=== PATIENT | male | born 1945 | race Caucasian/White ===

== ENCOUNTER 2018-02-20 08:29 | Day surgery (SDC) | payer MEDICARE, BC ==
[~2018-02-20] VITALS: Ht 175.3 cm; Wt 1016.7 kg
[~2018-02-20 08:29] MED LIST: ATOR10 PO; BENAML20/5 PO; FISH1000 PO; LEVSOD200 PO; MULVITMIND PO
[2018-02-20] MEDS ORDERED: Aspir 8181 MG (09:06)
[2018-02-20] MEDS ORDERED: FENOFIBRIC ACID35 MG (09:07)
[2018-02-20] MEDS ORDERED: LOSA50 (09:07)
[2018-02-20] MEDS ORDERED: TAMS.4ER (09:07)
[2018-02-20] MEDS ORDERED: DICL75ER (09:08)
== END 2018-02-20 10:21 | disposition home or self-care (01) ==
LOC: ORSCSDS 08:29
PROVIDERS: Surgery
PROC: 0DBM8ZX Excision of Descending Colon, Via Natural or Artificial Opening Endoscopic, Diagnostic (ICD-10-PCS; principal; 2018-02-20 09:45)
DX: Z12.11 Encounter for screening for malignant neoplasm of colon (principal); D12.4 Benign neoplasm of descending colon; Z86.010 Personal history of colon polyps; G47.30 Sleep apnea, unspecified; I10 Essential (primary) hypertension; J45.909 Unspecified asthma, uncomplicated; N40.0 Benign prostatic hyperplasia without lower urinary tract symptoms; E03.9 Hypothyroidism, unspecified; E78.00 Pure hypercholesterolemia, unspecified; Z79.82 Long term (current) use of aspirin; Z79.899 Other long term (current) drug therapy; Z87.891 Personal history of nicotine dependence
CPT/HCPCS: 88305; J0330; J1980; J2405; J7120

== ENCOUNTER → 2019-07-22 | Outpatient (CLI) | payer MEDICARE, BC ==
[~2019-07-22] MED LIST changes: +Aspir 8181 MG; +DICL75ER; +FENOFIBRIC ACID35 MG; +LOSA50; +TAMS.4ER
[2019-07-22 16:25] LABS: Bilirubin, Urine Neg (Neg); Blood, Urine Neg (Neg); Glucose Qualitative, Urine Neg (Neg); Ketones, Urine Neg (Neg); Leukocyte Esterase, Urine Neg (Neg); Nitrite, Urine Neg (Neg); Protein, Urine Neg (Neg); Specific Gravity, Urine 1.015 (1.003-1.022); Urobilinogen, Urine NORM (Normal)
[2019-07-22 16:32] LABS: Appearance, Urine Clear (Clear); Color, Urine Yellow (P-Yellow)
[2019-07-22 16:58] LABS: Protein, Urine Random 6.9 mg/dL (0.0-11.9)
== END | disposition home or self-care (01) ==
LOC: LAB 13:29 → LAB SHORT 13:29
PROVIDERS: Internal Medicine
DX: I12.9 Hypertensive chronic kidney disease with stage 1 through stage 4 chronic kidney disease, or unspecified chronic kidney disease (principal); N18.3 Chronic kidney disease, stage 3 (moderate)
CPT/HCPCS: 81003; 82570; 84156

== ENCOUNTER 2020-08-09 13:18 | Emergency (ER) | payer MEDICARE, BC ==
[~2020-08-09] VITALS: Ht 175.3 cm; Wt 97.5 kg
[2020-08-09] MEDS ORDERED: OLME20 PO (13:43)
[2020-08-09] MEDS ORDERED: DULO30 PO (13:43)
[2020-08-09] MEDS ORDERED: DUTA.5 PO (13:43)
[2020-08-09] MEDS ORDERED: BENADRYL25 MG PO (13:44)
[2020-08-09] MEDS ORDERED: NIAC500 PO (13:44)
[2020-08-09] MEDS ORDERED: UBID10 PO (13:44)
[2020-08-09] MEDS ORDERED: ALLEGRA ALLERG180 MG PO (13:44)
[2020-08-09] MEDS ORDERED: FISH OIL-VIT D1 EACH PO (13:44)
[2020-08-09 15:41] LABS: BASOPHILS ABSOLUTE AUTO 0.02 K/mm3 (0.00-0.23); BASOPHILS PERCENT AUTO 0 % (0-2); EOSINOPHILS ABSOLUTE AUTO 0.03 K/mm3 (0.00-0.68); EOSINOPHILS PERCENT AUTO 0 % (0-6); Hematocrit 41.7 % (37.0-53.0); Hemoglobin 13.2 g/dL (13.5-17.5); IMMATURE GRAN ABSOLUTE AUTO 0.03 K/mm3 (0.00-0.10); IMMATURE GRAN PERCENT AUTO 0 % (0-1); LYMPHOCYTES ABSOLUTE AUTO 0.92 K/mm3 (0.84-5.20); LYMPHOCYTES PERCENT AUTO 9 % (21-46); MONOCYTES ABSOLUTE AUTO 1.53 K/mm3 (0.16-1.47); MONOCYTES PERCENT AUTO 15 % (4-13); Mean Corpuscular HGB 29.6 pg (26.0-34.0); Mean Corpuscular HGB Conc 31.7 g/dL (31.5-36.5); Mean Corpuscular Volume 94 fL (80-100); Mean Platelet Volume 10.8 fL (9.1-12.4); NEUTROPHILS ABSOLUTE AUTO 7.85 K/mm3 (1.96-9.15); NEUTROPHILS PERCENT AUTO 76 % (41-73); Platelet Count 266 K/mm3 (150-400); RDW Coefficient Variation 12.9 % (11.7-14.2); RDW Standard Deviation 44.2 fL (35.1-46.3); Red Blood Cell Count 4.46 M/mm3 (4.30-5.90); White Blood Cell Count 10.38 K/mm3 (4.00-11.30)
[2020-08-09 15:58] LABS: Alanine Aminotransfer (ALT/SGP 22 U/L (12-78); Albumin, Blood 3.5 g/dL (3.4-5.0); Albumin/Globulin Ratio 0.9 (0.8-1.8); Alk Phos 42 U/L (50-136); Anion Gap 4 mmol/L (6-16); Aspartate Aminotrans (AST/SGOT 13 U/L (12-37); Bilirubin, Total 0.4 mg/dL (0.1-1.0); Blood Urea Nitrogen 20 mg/dL (8-24); Bun/Creatinine Ratio 15.9 (12.0-20.0); CO2, Blood 28 mmol/L (21-32); Calcium, Blood 9.2 mg/dL (8.5-10.1); Chloride, Blood 108 mmol/L (98-108); Creatinine, Blood 1.26 mg/dL (0.60-1.20); Globulin, Blood 3.8 g/dL (2.2-4.0); Glomerular Filtration Rate 59 (60-); Glucose, Blood 120 mg/dL (70-99); Potassium, Blood 4.3 mmol/L (3.5-5.5); Sodium, Blood 140 mmol/L (136-145); Total Protein, Blood 7.3 g/dL (6.4-8.2); Troponin I <0.015 ng/mL (0.000-0.040)
[2020-08-09] MEDS ORDERED: LIDO700A20 TOP (17:56)
[2020-08-09] MEDS ORDERED: ACETAMINOPHEN500 MG PO (17:56)
[2020-08-09] MEDS ORDERED: Valium5 MG PO (17:56)
== END 2020-08-09 18:33 | disposition home or self-care (01) ==
LOC: ER 13:18
PROVIDERS: Emergency Medicine
DX: M62.838 Other muscle spasm (principal); R07.9 Chest pain, unspecified; I10 Essential (primary) hypertension; F17.200 Nicotine dependence, unspecified, uncomplicated; Z79.82 Long term (current) use of aspirin; Z79.899 Other long term (current) drug therapy
CPT/HCPCS: 36415; 71045; 80053; 84484; 85025; 93005; 93010; 99285-25; A9270; A9270-GY

== ENCOUNTER → 2022-09-01 | Outpatient (CLI) | payer MEDICARE, BC ==
[~2022-09-01] MED LIST changes: +ACETAMINOPHEN500 MG PO; +ALLEGRA ALLERG180 MG PO; +BENADRYL25 MG PO; +DULO30 PO; +DUTA.5 PO; +FISH OIL-VIT D1 EACH PO; +LIDO700A20 TOP; +NIAC500 PO; +OLME20 PO; +UBID10 PO; +Valium5 MG PO
[2022-09-01 10:11] LABS: Protein, Urine Quantitative <5.0 mg/dL (0.0-11.9)
== END | disposition home or self-care (01) ==
LOC: LAB SHORT 06:05
PROVIDERS: Family Medicine
DX: N28.9 Disorder of kidney and ureter, unspecified (principal)
CPT/HCPCS: 81050; 84156

== ENCOUNTER 2023-04-13 18:41 | Observation (INO) | payer MEDICARE, BC ==
[~2023-04-13] VITALS: Ht 175.3 cm; Wt 102.0 kg
[2023-04-13 19:59] LABS: BASOPHILS ABSOLUTE AUTO 0.05 K/mm3 (0.00-0.23); BASOPHILS PERCENT AUTO 1 % (0-2); EOSINOPHILS ABSOLUTE AUTO 0.24 K/mm3 (0.00-0.68); EOSINOPHILS PERCENT AUTO 4 % (0-6); Hematocrit 36.3 % (37.0-53.0); Hemoglobin 11.7 g/dL (13.5-17.5); IMMATURE GRAN ABSOLUTE AUTO 0.02 K/mm3 (0.00-0.10); IMMATURE GRAN PERCENT AUTO 0 % (0-1); LYMPHOCYTES ABSOLUTE AUTO 1.03 K/mm3 (0.84-5.20); LYMPHOCYTES PERCENT AUTO 17 % (21-46); MONOCYTES ABSOLUTE AUTO 0.68 K/mm3 (0.16-1.47); MONOCYTES PERCENT AUTO 11 % (4-13); Mean Corpuscular HGB 30.5 pg (26.0-34.0); Mean Corpuscular HGB Conc 32.2 g/dL (31.5-36.5); Mean Corpuscular Volume 95 fL (80-100); Mean Platelet Volume 10.5 fL (9.1-12.4); NEUTROPHILS ABSOLUTE AUTO 4.15 K/mm3 (1.96-9.15); NEUTROPHILS PERCENT AUTO 67 % (41-73); Platelet Count 237 K/mm3 (150-400); RDW Coefficient Variation 13.9 % (11.7-14.2); RDW Standard Deviation 47.8 fL (35.1-46.3); Red Blood Cell Count 3.83 M/mm3 (4.30-5.90); White Blood Cell Count 6.17 K/mm3 (4.00-11.30)
[2023-04-13 20:18] LABS: Albumin, Blood 3.7 g/dL (3.4-5.0); Albumin/Globulin Ratio 1.3 (0.8-1.8); Bilirubin, Total 0.3 mg/dL (0.1-1.0); Bun/Creatinine Ratio 19.2 (12.0-20.0); Calcium, Blood 9.4 mg/dL (8.5-10.1); Creatinine, Blood 2.13 mg/dL (0.60-1.20); Globulin, Blood 2.9 g/dL (2.2-4.0); Magnesium, Blood 2.1 mg/dL (1.6-2.4); Potassium, Blood 4.4 mmol/L (3.5-5.5); Total Protein, Blood 6.6 g/dL (6.4-8.2)
[2023-04-13 23:03] LABS: Source, Urine Clean Catch
[2023-04-13 23:27] LABS: Appearance, Urine Clear (Clear); Bilirubin, Urine Neg (Neg); Blood, Urine Neg (Neg); Color, Urine Yellow (P-Yellow); Glucose Qualitative, Urine Neg (Neg); Ketones, Urine Neg (Neg); Leukocyte Esterase, Urine Neg (Neg); Nitrite, Urine Neg (Neg); Protein, Urine Neg (Neg); Urobilinogen, Urine NORM (Normal)
[2023-04-13 23:39] LABS: U Amphetamine Screen Not Detected; U Barbituate Screen Not Detected; U Benzodiazapine Screen Not Detected; U Buprenorphine Screen Not Detected; U Cannabinoids Screen DETECTED; U Cocaine Screen Not Detected; U Methadone Screen Not Detected; U Methamphetamine Screen Not Detected; U Opiates Screen Not Detected; U Oxycodone Screen Not Detected; U Phencyclidine Screen Not Detected; U Propoxyphene Screen Not Detected
[2023-04-13 23:42] VITALS: BP 146/61
[2023-04-13] MEDS ORDERED: BREO ELLIPTA 11 EAC1 (23:44)
--- NOTE | 2023-04-14 02:58 | NUR ---
ENRICO ARRIVED NEW ADMIT AT 2330. TRANSFERS TO BED SBA, VSS. FAMILY AT BESIDE. PATIENT IS AOX4. ANSWERS QUESTIONS APPROPRIATLEY. VOIDING USING URANAL AT BEDSIDE. IVF RUNNING AT 75/HR. RT ORDERED CPAP, PULSE OX IN PLACE. CALL LIGHT IN REACH. ORIENTED TO ROOM.
[2023-04-14 04:29] VITALS: BP 121/66
[2023-04-14 04:34] LABS: BASOPHILS ABSOLUTE AUTO 0.04 K/mm3 (0.00-0.23); BASOPHILS PERCENT AUTO 1 % (0-2); EOSINOPHILS ABSOLUTE AUTO 0.32 K/mm3 (0.00-0.68); EOSINOPHILS PERCENT AUTO 6 % (0-6); Hematocrit 34.5 % (37.0-53.0); Hemoglobin 10.8 g/dL (13.5-17.5); IMMATURE GRAN ABSOLUTE AUTO 0.02 K/mm3 (0.00-0.10); IMMATURE GRAN PERCENT AUTO 0 % (0-1); LYMPHOCYTES ABSOLUTE AUTO 1.48 K/mm3 (0.84-5.20); LYMPHOCYTES PERCENT AUTO 27 % (21-46); MONOCYTES ABSOLUTE AUTO 0.64 K/mm3 (0.16-1.47); MONOCYTES PERCENT AUTO 12 % (4-13); Mean Corpuscular HGB 30.1 pg (26.0-34.0); Mean Corpuscular HGB Conc 31.3 g/dL (31.5-36.5); Mean Corpuscular Volume 96 fL (80-100); Mean Platelet Volume 10.4 fL (9.1-12.4); NEUTROPHILS ABSOLUTE AUTO 3.07 K/mm3 (1.96-9.15); NEUTROPHILS PERCENT AUTO 55 % (41-73); Platelet Count 217 K/mm3 (150-400); RDW Coefficient Variation 13.8 % (11.7-14.2); RDW Standard Deviation 49.1 fL (35.1-46.3); Red Blood Cell Count 3.59 M/mm3 (4.30-5.90); White Blood Cell Count 5.57 K/mm3 (4.00-11.30)
--- NOTE | 2023-04-14 04:54 | NUR ---
SHIFT SUMMARY NO ACUTE CHANGES SINCE LAST NOTE, PATIENT IS ABLE TO SLEEP WELL. RT SET UP CPAP IN ROOM. PATIENT IS AOX4, CALLS APROPRIATELY. USING URINAL AT BEDSIDE. TOLERATING PO INTAKE. IVF RUNNING. DENIES N/V. SMALL CIRCULAR KNOT ON LEFT SIDE TOP OF HEAD. PATIENT REPORTS HITTING HEAD WHEN HE FELL EARLIER. VSS, CALL LIGHT IN REACH. WILL REPORT TO DAY SHIFT RN.
[2023-04-14 05:08] LABS: Albumin, Blood 3.1 g/dL (3.4-5.0); Albumin/Globulin Ratio 1.1 (0.8-1.8); Bilirubin, Total 0.3 mg/dL (0.1-1.0); Bun/Creatinine Ratio 21.4 (12.0-20.0); Calcium, Blood 8.5 mg/dL (8.5-10.1); Creatinine, Blood 1.82 mg/dL (0.60-1.20); Globulin, Blood 2.7 g/dL (2.2-4.0); Potassium, Blood 4.3 mmol/L (3.5-5.5); Total Protein, Blood 5.8 g/dL (6.4-8.2)
[2023-04-14 07:38] VITALS: BP 135/74
[2023-04-14] MEDS ORDERED: AMLO5 PO (11:32)
--- NOTE | 2023-04-14 13:49 | NUR ---
DISCHARGE SUMMARY VERBAL AND WRITTEN DISCHARGE INSTRUCTIONS, PT AGREEABLE TO DISCHARGE. [facility] RN APPLIED ZIO PATCH, AND GAVE INSTRUCTIONS ON USE. IV REMOVED, CATH TIP INTACT. VOIDING WELL AND VITAL SIGNS STABLE. AND ALL PATIENTS BELONGINGS GATHERED AND TAKEN OUT W/ PATIENT.
== END 2023-04-14 13:56 | disposition home or self-care (01) ==
LOC: ER 18:41 → SURS 18:42
PROVIDERS: Physician Assistant; ADMIT Internal Medicine
DX: R55 Syncope and collapse (principal); N17.9 Acute kidney failure, unspecified; N18.30 Chronic kidney disease, stage 3 unspecified; I95.9 Hypotension, unspecified; E86.9 Volume depletion, unspecified; S00.93XA Contusion of unspecified part of head, initial encounter
CPT/HCPCS: 36415; 70450; 71046; 76770; 80053; 81003; 82947; 83735; 83880; 84484; 85025; 93005; 93010; 93246; 94660; 94762; 96361; 96372-59; 99285-25; A9270; G0378; J1650; J7030

== ENCOUNTER 2023-06-30 06:37 | Day surgery (SDC) | payer MEDICARE, BC ==
[~2023-06-30] VITALS: Ht 175.3 cm; Wt 96.2 kg
[~2023-06-30 06:37] MED LIST changes: +AMLO5 PO; +BREO ELLIPTA 11 EAC1
[2023-06-30] MEDS ORDERED: FURO80 (07:11)
[2023-06-30] MEDS ORDERED: ERGO400 (07:12)
[2023-06-30 08:26] VITALS: BP 113/60
== END 2023-06-30 08:46 | disposition home or self-care (01) ==
LOC: ORSCSDS 06:37
DX: Z12.11 Encounter for screening for malignant neoplasm of colon (principal); Z86.010 Personal history of colon polyps; D12.3 Benign neoplasm of transverse colon; D12.4 Benign neoplasm of descending colon; D12.2 Benign neoplasm of ascending colon; N18.31 Chronic kidney disease, stage 3a; G47.30 Sleep apnea, unspecified; G47.33 Obstructive sleep apnea (adult) (pediatric); J45.909 Unspecified asthma, uncomplicated; E03.9 Hypothyroidism, unspecified; F17.210 Nicotine dependence, cigarettes, uncomplicated; Z79.82 Long term (current) use of aspirin; Z79.899 Other long term (current) drug therapy
CPT/HCPCS: 88305; J2704; J7120

== ENCOUNTER 2024-04-16 07:44 | Day surgery (SDC) | payer MEDICARE, BC ==
[~2024-04-16] VITALS: Ht 175.3 cm; Wt 94.6 kg
[~2024-04-16 07:44] MED LIST changes: +Balanced Salt Epinephrine Irrigation Solution 500 mL IR SCH; +ERGO400; +FURO80; +Lidocaine HCl/Pf 1% 5 ML VIAL XX SCH; +Moxifloxacin HCL 0.5 MG/0.1 ML 0.4MLSYR RIGHTEYE SCH; +NS 500 ML IV ONE; +PHENYLEPHRINE\\TROPICAMIDE\\TETRACAINE OPHTHALMIC DILATING SOLN RIGHTEYE PRN; +Povidone-Iodine 450 DROP/30 ML Solution RIGHTEYE SCH
[2024-04-16] MEDS ORDERED: MELATONIN (07:59)
[2024-04-16] MEDS ORDERED: ALBU90OI61 INH (08:00)
[2024-04-16] MEDS ORDERED: LOSARTAN POTASS25 M2 PO (08:00)
[2024-04-16] MEDS ORDERED: NS 500 ML IV ONE (08:03)
--- NOTE | 2024-04-16 08:08 | NUR ---
04/16/24 0808 Lesley Rubio AT 0756 PLEDGET AT 0756
[2024-04-16] MEDS ORDERED: Midazolam HCl 1MG / ML 2ML Vial ONE (08:10)
[2024-04-16] MEDS ORDERED: FentaNYL Citrate 50 MCG/ML 2 ML Injection ONE (08:10)
--- NOTE | 2024-04-16 09:58 | NUR ---
04/16/24 0958 Primo Mead PT INITIALLY REPORTED PAIN IN L ARM. FABIOLA KING CONSULTED. THREE LEAD ECG WAS OBTAINED, PER HER ORDER. ARM PAIN QUICKLY RESOLVED. FABIOLA KING REVIEWED VITALS AND ECG, AND SHE APPROVED D/C.
[2024-04-16 13:47] VITALS: BP 125/64
== END 2024-04-16 09:30 | disposition home or self-care (01) ==
LOC: ORSCSDS 07:44
PROVIDERS: Student in an Organized Health Care Education/Training Program
PROC: 08RJ3JZ Replacement of Right Lens with Synthetic Substitute, Percutaneous Approach (ICD-10-PCS; principal; 2024-04-16 09:00)
DX: H25.813 Combined forms of age-related cataract, bilateral (principal); E78.5 Hyperlipidemia, unspecified; I12.9 Hypertensive chronic kidney disease with stage 1 through stage 4 chronic kidney disease, or unspecified chronic kidney disease; N18.31 Chronic kidney disease, stage 3a; J44.9 Chronic obstructive pulmonary disease, unspecified; I50.9 Heart failure, unspecified; E66.9 Obesity, unspecified; Z68.30 Body mass index [BMI] 30.0-30.9, adult; Z87.891 Personal history of nicotine dependence; Z79.82 Long term (current) use of aspirin; Z79.84 Long term (current) use of oral hypoglycemic drugs; Z79.899 Other long term (current) drug therapy
CPT/HCPCS: J2250; J3010; J7040; V2632

== ENCOUNTER 2024-04-23 07:43 | Day surgery (SDC) | payer MEDICARE, BC ==
[~2024-04-23] VITALS: Ht 175.3 cm; Wt 95.3 kg
[~2024-04-23 07:43] MED LIST changes: +ALBU90OI61 INH; +LOSARTAN POTASS25 M2 PO; +MELATONIN; +Moxifloxacin HCL 0.5 MG/0.1 ML 0.4MLSYR LEFTEYE SCH; -Moxifloxacin HCL 0.5 MG/0.1 ML 0.4MLSYR RIGHTEYE SCH; +PHENYLEPHRINE\\TROPICAMIDE\\TETRACAINE OPHTHALMIC DILATING SOLN LEFTEYE PRN; -PHENYLEPHRINE\\TROPICAMIDE\\TETRACAINE OPHTHALMIC DILATING SOLN RIGHTEYE PRN; +Povidone-Iodine 450 DROP/30 ML Solution LEFTEYE SCH; -Povidone-Iodine 450 DROP/30 ML Solution RIGHTEYE SCH
[2024-04-23] MEDS ORDERED: FentaNYL Citrate 50 MCG/ML 2 ML Injection ONE (07:55)
[2024-04-23] MEDS ORDERED: Midazolam HCl 1MG / ML 2ML Vial ONE (07:55)
[2024-04-23] MEDS ORDERED: FUROSEMIDE20 MG PO (08:24)
[2024-04-23] MEDS ORDERED: NS 500 ML IV ONE (08:28)
[2024-04-23] MEDS ORDERED: Tetracaine HCl 0.5% Opth Soln 15 ml LEFTEYE ONE (08:46)
--- NOTE | 2024-04-23 09:31 | NUR ---
04/23/24 0931 Primo Mead PT REPORTED LEFT SIDED SHOULDER PAIN IN OR, PER CIRCULATING RN. PAIN HAD LESSENED BY THE TIME PT ARRIVED IN SDU AND RESOLVED SHORTLY THEREAFTER. PT DENIED SOB, CP, DIZZINESS, WEAKNESS, AND OTHER CARDIAC SYMPTOMS. NONE WERE OBSERVED.
--- NOTE | 2024-04-23 09:32 | NUR ---
04/23/24 0932 Primo Mead SEE PACU NOTES.
[2024-04-23 09:33] VITALS: BP 122/64
== END 2024-04-23 09:21 | disposition home or self-care (01) ==
LOC: ORSCSDS 07:43
PROVIDERS: Student in an Organized Health Care Education/Training Program
PROC: 08RK3JZ Replacement of Left Lens with Synthetic Substitute, Percutaneous Approach (ICD-10-PCS; principal; 2024-04-23 09:00)
DX: E11.36 Type 2 diabetes mellitus with diabetic cataract (principal); H25.812 Combined forms of age-related cataract, left eye; H21.81 Floppy iris syndrome; Z96.1 Presence of intraocular lens; Z87.891 Personal history of nicotine dependence; J44.9 Chronic obstructive pulmonary disease, unspecified; G47.33 Obstructive sleep apnea (adult) (pediatric); I25.10 Atherosclerotic heart disease of native coronary artery without angina pectoris; I12.9 Hypertensive chronic kidney disease with stage 1 through stage 4 chronic kidney disease, or unspecified chronic kidney disease; N18.31 Chronic kidney disease, stage 3a; E11.22 Type 2 diabetes mellitus with diabetic chronic kidney disease; E78.5 Hyperlipidemia, unspecified; Z79.82 Long term (current) use of aspirin; Z79.899 Other long term (current) drug therapy
CPT/HCPCS: J2250; J3010; J7040; V2632